=== PATIENT | male | born 1970 | race Hispanic/Latino ===

== ENCOUNTER → 2024-02-11 | Outpatient (CLI) | payer OTHER ==
[2024-02-11 12:47] LABS: BASOPHILS # (AUTO) 0.03 K/uL (0.00-0.20); BASOPHILS % (AUTO) 0.4 % (0.0-5.0); EOSINOPHILS # (AUTO) 0.15 K/uL (0.00-0.70); EOSINOPHILS % (AUTO) 2.1 % (0.0-8.0); HEMATOCRIT 48.2 % (42-54); IMMATURE GRANULOCYTE ABSOLUTE 0.02 K/uL (0-1); LYMPHOCYTES # (AUTO) 2.5 K/uL (1.0-4.8); LYMPHOCYTES % (AUTO) 33.9 % (21.0-51.0); MEAN CORPUSCULAR HEMOGLOBIN 30.6 pg (27.0-33.0); MEAN CORPUSCULAR VOLUME 92.7 fL (79-99); MONOCYTES # (AUTO) 0.7 K/uL (0.1-1.0); MONOCYTES % (AUTO) 9.9 % (3.0-13.0); NEUTROPHILS # (AUTO) 3.9 K/uL (1.8-7.7); NEUTROPHILS % (AUTO) 53.4 % (40.0-77.0); PLATELET COUNT (AUTO) 255 K/uL (130-400); RED CELL DISTRIBUTION WIDTH 13.4 % (11.0-15.5); WHITE BLOOD COUNT (AUTO) 7.3 K/uL (4.8-10.8)
[2024-02-11 13:04] LABS: HEMOGLOBIN A1C 5.5 % (4.0-6.0)
[2024-02-11 13:21] LABS: ALBUMIN 3.5 g/dL (3.5-5.0); BILIRUBIN,TOTAL 0.4 mg/dL (0.2-1.0); CREATININE 0.9 mg/dL (0.5-1.3); POTASSIUM 3.9 mmol/L (3.5-5.1); THYROID STIMULATING HORMONE 10.07 uIU/mL (0.36-3.74); TOTAL PROTEIN, SERUM 7.5 g/dL (6.0-8.3)
[2024-02-11 16:07] LABS: MAGNESIUM 1.7 mg/dL (1.80-2.40)
== END | disposition home or self-care (01) ==
LOC: LAB 11:25
PROVIDERS: ATTEND Internal Medicine Cardiovascular Disease
DX: I10 Essential (primary) hypertension (principal); E78.5 Hyperlipidemia, unspecified
CPT/HCPCS: 36415; 80053; 83036; 83735; 83880; 84436; 84443; 84479; 85025

== ENCOUNTER → 2024-04-15 | Outpatient (CLI) | payer OTHER | END | disposition home or self-care (01) | LOC: SHCH 11:20 | PROVIDERS: ATTEND Internal Medicine Cardiovascular Disease | DX: I73.9 Peripheral vascular disease, unspecified (principal) | CPT/HCPCS: 93971 ==

== ENCOUNTER 2024-06-02 05:40 | Observation (INO) | payer OTHER ==
[2024-05-29 10:46] VITALS: BP 139/73; PULSE 70; RESP 16
[2024-05-29 10:51] LABS: BASOPHILS # (AUTO) 0.04 K/uL (0.00-0.20); BASOPHILS % (AUTO) 0.6 % (0.0-5.0); EOSINOPHILS # (AUTO) 0.18 K/uL (0.00-0.70); EOSINOPHILS % (AUTO) 2.6 % (0.0-8.0); HEMATOCRIT 50.4 % (42-54); IMMATURE GRANULOCYTE ABSOLUTE 0.02 K/uL (0-1); LYMPHOCYTES # (AUTO) 2.1 K/uL (1.0-4.8); LYMPHOCYTES % (AUTO) 29.6 % (21.0-51.0); MEAN CORPUSCULAR HEMOGLOBIN 30.7 pg (27.0-33.0); MEAN CORPUSCULAR HGB CONC 32.9 g/dL (32.0-36.0); MEAN CORPUSCULAR VOLUME 93.2 fL (79-99); MONOCYTES # (AUTO) 0.7 K/uL (0.1-1.0); MONOCYTES % (AUTO) 9.3 % (3.0-13.0); NEUTROPHILS % (AUTO) 57.6 % (40.0-77.0); PLATELET COUNT (AUTO) 277 K/uL (130-400); RED BLOOD CELL COUNT(AUTO) 5.41 MIL/uL (4.50-6.20); RED CELL DISTRIBUTION WIDTH 13.1 % (11.0-15.5)
[2024-05-29 10:57] LABS: CREATININE 0.9 mg/dL (0.5-1.3); POTASSIUM 3.6 mmol/L (3.5-5.1)
[2024-05-29 10:58] LABS: APPEARANCE,URINE CLEAR (CLEAR); BILIRUBIN,URINE NEGATIVE (NEGATIVE); COLOR,URINE LIGHT-YELLOW (YELLOW); GLUCOSE, URINE (UA) >=1000 mg/dL (NEGATIVE); KETONES,URINE NEGATIVE (NEGATIVE); LEUKOCYTE ESTERASE ,URINE NEGATIVE Leu/uL (NEGATIVE); NITRATE,URINE NEGATIVE (NEGATIVE); PH,URINE 5.5 (5.0-8.0); PROTEIN,URINE 10 mg/dL (NEGATIVE); UROBILINOGEN,URINE 0.2 mg/dL (0.2-1.0)
[2024-05-29 11:05] LABS: INR 1.11 (0.85-1.15); PROTHROMBIN TIME 11.9 SEC (9.6-11.6)
[2024-05-29 11:05] LABS: ADD UA MICROSCOPIC YES
[2024-05-29 11:06] LABS: PARTIAL THROMBOPLASTIN TIME 27.2 SEC (26.3-35.5)
[2024-05-29 11:09] LABS: MUCUS,URINE RARE LPF (None Seen); RBC,URINE 0-1 /HPF (0-1); SQUAMOUS EPITHELIAL CELL,UR RARE /HPF (0-2); WBC,URINE 0-1 /HPF (0-1)
[2024-05-29 11:19] LABS: B-TYPE NATRIURETIC PEPTIDE 102 pg/mL (0-100)
[2024-06-02] VITALS (17 sets, daily range): BP systolic 99–118; BP diastolic 51–74; PULSE 59–97; RESP 12–50; O2SAT 95–96
[~2024-06-02] VITALS: Ht 175.3 cm; Wt 110.0 kg
[~2024-06-02 05:40] MED LIST: AEC81 PO; ATOR40TA71 PO; CLOP75TA32 PO; DICL75TA5 PO; DULO30CA52 PO; EMPA10TA PO; ESCI-8 PO; FURO20TA4 PO; GABA600T10 PO; LOSA25TA41 PO; METO50TA18 PO; OMEP20CA12 PO
[2024-06-02] MEDS: 0.9%NACL 1000ML 1,000 ML IV ONE (06:36)
[2024-06-02] MEDS ORDERED: SODIUM BICARB 50MEQ 50ML VIAL 50 ML ONE (10:01)
[2024-06-02] MEDS ORDERED: LIDOCAINE HCL 400MG/20ML VIAL ONE (10:01)
[2024-06-02] MEDS ORDERED: IOHEXOL 350 MG/ML 100ML INFUS..BTL IV ONE ×2 (10:01→11:36)
[2024-06-02] MEDS ORDERED: NITROGLYCERIN 50MG VIAL ONE (10:02)
[2024-06-02] MEDS ORDERED: MEPERIDINE-PF 25 MG/ML SYG ONE ×4 (10:13→11:26)
[2024-06-02] MEDS ORDERED: MIDAZOLAM HCL 1 MG/ML 2ML VIAL ONE ×4 (10:14→11:27)
[2024-06-02] MEDS ORDERED: BIVALIRUDIN 250 MG/VIAL IV ONE (10:28)
[2024-06-02] MEDS ORDERED: HEPARIN 10,000 UNIT/10ML (1,000 UNIT/ML) VIAL ONE (10:42)
[2024-06-02] MEDS ORDERED: LIDOCAINE PF 100MG/5ML (2%) SYRINGE 5ML ONE (11:52)
[2024-06-02] MEDS ORDERED: LIDOCAINE HCL 1% 10 ML VIAL ONE (11:52)
[2024-06-02] MEDS ORDERED: GLUCAGON 1MG KIT 1 MG ML IM PRN (12:30)
[2024-06-02] MEDS: 0.9%NACL 1000ML 1,000 ML IV SCH (12:30)
[2024-06-02] MEDS ORDERED: DEXTROSE 50%-WATER 50 ML DISP.SYRIN IV PRN (12:30)
[2024-06-02 12:35] LABS: CREATININE 0.8 mg/dL (0.5-1.3); MAGNESIUM 1.7 mg/dL (1.80-2.40); POTASSIUM 3.6 mmol/L (3.5-5.1)
[2024-06-02] MEDS: ASPIRIN 81MG CHEW TAB ONE (13:34)
[2024-06-02] MEDS: CLOPIDOGREL 75MG TAB ONE (13:38)
[2024-06-02] MEDS ORDERED: PANT40GR PO (15:46)
[2024-06-02] MEDS: INSULIN HUMULIN R 100 UNIT/ML 3ML SQ SCH (20:31)
[2024-06-02] MEDS ORDERED: FUROSEMIDE 20 MG TABLET PO PRN (21:00)
[2024-06-02] MEDS: DICLOFENAC SODIUM 75 MG PO SCH (21:00)
[2024-06-02] MEDS: GABAPENTIN 300 MG CAPSULE PO SCH (21:43)
[2024-06-02] MEDS: METOPROLOL TARTRATE 50 MG TAB PO SCH (21:43)
[2024-06-03] VITALS (13 sets, daily range): BP systolic 100–137; BP diastolic 47–76; PULSE 58–87; RESP 11–26; O2SAT 96–98
[2024-06-03] MEDS: MAGNESIUM 2GM PREMIX 50ML 50 ML IV PRN (00:59)
[2024-06-03] MEDS: POTASSIUM CHLORIDE 10% ELIXIR 20 MEQ/15 ML UDCUP PO PRN (00:59)
[2024-06-03 04:03] LABS: BASOPHILS # (AUTO) 0.04 K/uL (0.00-0.20); BASOPHILS % (AUTO) 0.4 % (0.0-5.0); EOSINOPHILS # (AUTO) 0.21 K/uL (0.00-0.70); EOSINOPHILS % (AUTO) 2.1 % (0.0-8.0); HEMATOCRIT 46.6 % (42-54); IMMATURE GRANULOCYTE ABSOLUTE 0.05 K/uL (0-1); LYMPHOCYTES # (AUTO) 1.7 K/uL (1.0-4.8); LYMPHOCYTES % (AUTO) 16.7 % (21.0-51.0); MEAN CORPUSCULAR HEMOGLOBIN 30.5 pg (27.0-33.0); MEAN CORPUSCULAR HGB CONC 32.6 g/dL (32.0-36.0); MEAN CORPUSCULAR VOLUME 93.6 fL (79-99); MONOCYTES # (AUTO) 0.9 K/uL (0.1-1.0); MONOCYTES % (AUTO) 9.3 % (3.0-13.0); NEUTROPHILS # (AUTO) 7.2 K/uL (1.8-7.7); PLATELET COUNT (AUTO) 241 K/uL (130-400); RED BLOOD CELL COUNT(AUTO) 4.98 MIL/uL (4.50-6.20); RED CELL DISTRIBUTION WIDTH 13.2 % (11.0-15.5); WHITE BLOOD COUNT (AUTO) 10.1 K/uL (4.8-10.8)
[2024-06-03 04:05] LABS: CREATININE 0.8 mg/dL (0.5-1.3); MAGNESIUM 2.7 mg/dL (1.80-2.40); PHOSPHORUS 3.9 mg/dL (2.5-4.9); POTASSIUM 3.9 mmol/L (3.5-5.1)
[2024-06-03] MEDS: PANTOPRAZOLE 40 MG TAB DR PO SCH (06:35)
[2024-06-03] MEDS: EMPAGLIFLOZIN 10MG TABLET PO SCH (08:24)
[2024-06-03] MEDS: citaLOPram 20 MG TABLET PO SCH (08:24)
[2024-06-03] MEDS: LOSARTAN 25 MG TABLET PO SCH (08:25)
[2024-06-03] MEDS: FUROSEMIDE 20 MG TABLET PO SCH (08:25)
[2024-06-03] MEDS: DULOXETINE HCL 30 MG CAP PO SCH (08:25)
[2024-06-03] MEDS: ATORVASTATIN 40 MG TABLET PO SCH (08:25)
[2024-06-03] MEDS: ASPIRIN 81 MG EC TAB PO SCH (08:25)
[2024-06-03] MEDS: CLOPIDOGREL 75MG TAB PO SCH (08:25)
[2024-06-03] MEDS: KCL 20 MEQ ERTAB PO PRN (08:37)
[2024-06-03] MEDS ORDERED: ASPIRIN 81 MG EC TAB PO SCH (09:00)
[2024-06-03] MEDS ORDERED: CLOPIDOGREL 75MG TAB PO SCH (09:00)
== END 2024-06-03 17:13 | disposition home or self-care (01) ==
LOC: DAH 05:40 → DAHIP 05:41 → 2DH 17:41 → 2CH 22:00
PROVIDERS: ADMIT Internal Medicine Critical Care Medicine; ATTEND Internal Medicine Critical Care Medicine
DX: I25.110 Atherosclerotic heart disease of native coronary artery with unstable angina pectoris (principal); I10 Essential (primary) hypertension; I47.20 Ventricular tachycardia, unspecified; E78.5 Hyperlipidemia, unspecified; I49.01 Ventricular fibrillation; R57.9 Shock, unspecified; E66.9 Obesity, unspecified; Z95.1 Presence of aortocoronary bypass graft; Z79.899 Other long term (current) drug therapy; Z98.890 Other specified postprocedural states
CPT/HCPCS: 80048 ×3; 83880; 85025 ×2; 85610; 85730; 81001; 36415 ×3; 71045 ×2; 93005; 93459; 96365; 96366; 96361; 83735 ×2; 85347; 82948 ×3; 93306; 84100; 94760 ×2; C1769; C1887 ×2; C1894 ×2; C1874 ×2; C1760; Q9965 ×3; G0378 ×20; J3490 ×3; J7030; J2001; J1644 ×2; J2250 ×3; J2175 ×3; Q9967 ×2; A4215; A4223 ×3; A4222; A4221; A4663; A4216; A4606; C9604; J3475; 96360; 99156; 99157; J0583